=== PATIENT | female | born 1965 | race Hispanic/Latino ===

== ENCOUNTER 2020-12-11 20:26 | Emergency (ER) | payer MEDICARE ==
--- NOTE | 2020-12-11 22:27 | XRay Report ---
CHEST 2 VIEWS INDICATION / CLINICAL INFORMATION: Chest pain. COMPARISON: None available. FINDINGS: SUPPORT DEVICES: None. HEART / MEDIASTINUM: The heart size and pulmonary vasculature are normal. The aorta is normal in damian eduard. LUNGS / PLEURA: No significant pulmonary or pleural abnormality. No pneumothorax. ADDITIONAL FINDINGS: No significant additional findings. IMPRESSION: No acute findings. Signer Name: Frank Thompson MD Signed: 12/11/2020 10:22 PM Workstation Name: [id number]
[2020-12-11 23:06] LABS: Basophils # (Auto) 0.1 K/mm3 (0.0-0.1); Basophils % (Auto) 0.9 % (0.0-1.8); Eosinophils # (Auto) 0.3 K/mm3 (0.0-0.4); Eosinophils % (Auto) 2.7 % (0.0-4.3); Hematocrit 48.6 % (30.3-42.9); Hemoglobin 16.5 gm/dl (10.1-14.3); Lymphocytes # (Auto) 4.1 K/mm3 (1.2-5.4); Mean Corpuscular HGB Conc 34 % (30-34); Mean Corpuscular Volume 89 fl (79-97); Monocytes # (Auto) 0.6 K/mm3 (0.0-0.8); Monocytes % (Auto) 4.8 % (0.0-7.3); Platelet Count 345 K/mm3 (140-440); Red Blood Count 5.48 M/mm3 (3.65-5.03); Red Cell Distribution Width 14.2 % (13.2-15.2)
[2020-12-11 23:25] LABS: Alanine Aminotransferase 13 units/L (7-56); Albumin 4.4 g/dL (3.9-5); BUN/Creatinine Ratio 20; Blood Urea Nitrogen 22 mg/dL (7-17); Hemolysis Index 9
[2020-12-11] MEDS ORDERED: MORPHINE 4 MG/1 ML INJ IV ONE (23:43)
[2020-12-11] MEDS ORDERED: ONDANSETRON 4 MG/2 ML INJ IV ONE (23:43)
--- NOTE | 2020-12-12 00:12 | Emergency Department Report ---
HPI - General Chief Complaint: Dizziness Time Seen by Provider: 12/11/20 23:31 - HPI HPI: This is a 55-year-old female presents to the emergency department with the complaints of pelvic pain and pain to the right upper back, around the shoulder blade. The issue with the shoulder blade has been going on for "months." The patient is due to have a D&C here this coming Saturday with Dr. Becki Alcantar. She recently was seen secondary to dysfunctional uterine bleeding and says that she had an abnormal Pap smear. They suspect polyps. They spoke to her about a possible hysterectomy but the patient refused or deferred and will have the D&C. Patient says that the pelvic pain has increased over the past 1 to 2 days and that the pain is so bad that it is causing her to feel anxious and she thinks also causing her to feel short of breath. She otherwise has a history of anxiety, essential tremors, seizures. She has a previous cholecystectomy. She has not taken anything for symptoms prior to presentation. ED Past Medical Hx - Past Medical History Previous Medical History?: Yes Hx Seizures: Yes (Last 1 year ago) Hx Psychiatric Treatment: Yes (anxiety, essesntial tremors) - Surgical History Hx Cholecystectomy: Yes - Social History Smoking Status: Current Every Day Smoker - Medications Home Medications: Home Medications Medication Instructions Recorded Confirmed Last Taken Type HYDROcodone/APAP 5-325 [[place] 1 each PO Q4HR PRN 12/08/20 12/08/20 Unknown History 5/325] [place] 5-325 mg TAB 1 tab PO Q4H PRN 12/08/20 12/08/20 Unknown History buPROPion HCL [Bupropion Xl] 150 mg PO DAILY 12/08/20 12/08/20 Unknown History propranoloL [Inderal] 20 mg PO BID 12/08/20 12/08/20 Unknown History Nitrofurantoin [place]/M-Cryst 100 mg PO Q12HR #14 capsule 12/12/20 Unknown Rx [Macrobid CAP] Phenazopyridine [Pyridium] 100 mg PO TID #5 tab 12/12/20 Unknown Rx ED Review of Systems ROS: Stated complaint: DIZZINESS, ABD PIAN, FITZ Other details as noted in HPI Comment: All other systems reviewed and negative Constitutional: denies: chills, fever Eyes: denies: eye pain, vision change ENT: denies: ear pain, throat pain Respiratory: shortness of breath. denies: cough Cardiovascular: denies: palpitations, edema Gastrointestinal: denies: nausea, vomiting Genitourinary: other (Pelvic pain). denies: dysuria, discharge Musculoskeletal: back pain. denies: joint swelling Skin: denies: rash, lesions Neurological: denies: headache, weakness Physical Exam - Physical Exam Vital Signs: Vital Signs 12/11/20 21:35 Temperature 98.6 F Pulse Rate 107 H Respiratory 12 Rate Blood Pressure 110/88 O2 Sat by Pulse 97 Oximetry ED Course Vital Signs 12/11/20 21:35 Temperature 98.6 F Pulse Rate 107 H Respiratory 12 Rate Blood Pressure 110/88 O2 Sat by Pulse 97 Oximetry ED Medical Decision Making - Lab Data Result diagrams: 12/11/20 22:27 12/11/20 22:27 Lab Results 12/11/20 12/11/20 12/12/20 Range/Units 22:27 22:27 02:21 WBC 12.2 H (4.5-11.0) K/mm3 RBC 5.48 H (3.65-5.03) M/mm3 Hgb 16.5 H (10.1-14.3) gm/dl Hct 48.6 H (30.3-42.9) % MCV 89 (79-97) fl MCH 30 (28-32) pg MCHC 34 (30-34) % RDW 14.2 (13.2-15.2) % Plt Count 345 (140-440) K/mm3 Lymph % (Auto) 34.0 (13.4-35.0) % [place] % (Auto) 4.8 (0.0-7.3) % Eos % (Auto) 2.7 (0.0-4.3) % Baso % (Auto) 0.9 (0.0-1.8) % Lymph # (Auto) 4.1 (1.2-5.4) K/mm3 [place] # (Auto) 0.6 (0.0-0.8) K/mm3 Eos # (Auto) 0.3 (0.0-0.4) K/mm3 Baso # (Auto) 0.1 (0.0-0.1) K/mm3 Seg Neutrophils % 57.6 (40.0-70.0) % Seg Neutrophils # 7.0 (1.8-7.7) K/mm3 Sodium 142 (137-145) mmol/L Potassium 4.8 (3.6-5.0) mmol/L Chloride 103.2 (98-107) mmol/L Carbon Dioxide 29 (22-30) mmol/L Anion Gap 15 mmol/L BUN 22 H (7-17) mg/dL Creatinine 1.1 (0.6-1.2) mg/dL Estimated GFR 52 ml/min BUN/Creatinine Ratio 20 % Glucose 109 H (65-100) mg/dL Calcium 10.0 (8.4-10.2) mg/dL Total Bilirubin 0.30 (0.1-1.2) mg/dL AST 14 (5-40) units/L ALT 13 (7-56) units/L Alkaline Phosphatase 116 (35-129) units/L Troponin T < 0.010 (0.00-0.029) ng/mL Total Protein 7.1 (6.3-8.2) g/dL Albumin 4.4 (3.9-5) g/dL Albumin/Globulin Ratio 1.6 % Urine Color Yellow (Yellow) Urine Turbidity Slightly-cloudy (Clear) Urine pH 5.0 (5.0-7.0) Ur Specific [place] 1.016 (1.003-1.030) Urine Protein <15 mg/dl (Negative) mg/dL Urine Glucose (UA) Neg (Negative) mg/dL Urine Ketones Neg (Negative) mg/dL Urine Blood Mod (Negative) Urine Nitrite Neg (Negative) Urine Bilirubin Neg (Negative) Urine Urobilinogen < 2.0 (<2.0) mg/dL Ur Leukocyte Esterase Mod (Negative) Urine WBC (Auto) 58.0 H (0.0-6.0) /HPF Urine RBC (Auto) 5.0 (0.0-6.0) /HPF U Epithel Cells (Auto) 3.0 (0-13.0) /HPF Urine Bacteria (Auto) 1+ (Negative) /HPF Urine Mucus Few /HPF - EKG Data -: EKG Interpreted by Ca EKG shows normal: sinus rhythm, axis, intervals, QRS complexes, ST-T waves Rate: normal - EKG Data When compared to previous EKG there are: previous EKG unavailable Interpretation: normal EKG - Radiology Data Radiology results: report reviewed, image reviewed ULTRASOUND PELVIS INDICATION / CLINICAL INFORMATION: Pelvic pain. TECHNIQUE: Transabdominal. Duplex Color Doppler used: Yes. COMPARISON: None available FINDINGS: UTERUS: The uterus measures 6.6 x 2.2 x 3.5 cm. The uterus demonstrates a normal sonographic appearance. The endometrial stripe is not well seen. RIGHT ADNEXA: Not seen LEFT ADNEXA: Not seen URINARY BLADDER: No significant abnormality. FREE FLUID: None. ADDITIONAL FINDINGS: None. IMPRESSION: No significant abnormality of the uterus. Neither ovary is seen, though there is no significant cystic or solid mass in either adnexa. No free fluid. - Medical Decision Making This patient presents to the emergency department with the complaints of some pain to the right upper back, around the shoulder blade, as well as some lower abdominal and/or pelvic cramping pain. Heart and lung sounds are normal to auscultation. There is no abdominal tenderness to palpation. She does not appear in any respiratory or acute distress. Chest x-ray does not show any pneumonia, pleural effusions, pneumothorax, widened mediastinum, or any other acute process. Abdominal x-ray shows nonspecific nonobstructive bowel gas. No free air. Patient had an ultrasound that did not visualize the ovaries, but no significant abnormality seen to the uterus or bilateral adnexa. Patient's labs are mostly unremarkable including CBC, metabolic panel, and troponin. However, urinalysis shows a urinary tract infection with 58 WBCs. The patient was given a dose of IV analgesia, anti-inflammatory, IV fluid resu scitation, and antibiotic and a dose of Pyridium. She was reevaluated multiple times over multiple hours and is feeling greatly improved. Patient has good outpatient follow-up with [facility] for which she has a D&C scheduled on Saturday. She has also been instructed to follow-up with her primary care physician. She will return to the ER with any worsening of her symptoms or with any acute distress. Critical Care Time: No Critical care attestation.: If time is entered above; I have spent that time in minutes in the direct care of this critically ill patient, excluding procedure time. ED Disposition Clinical Impression: Pelvic cramping, Pain of right scapula UTI (urinary tract infection) Qualifiers: Urinary tract infection type: acute cystitis Hematuria presence: without hematuria Qualified Code(s): N30.00 - Acute cystitis without hematuria Disposition: TO HOME OR SELFCARE Is pt being admited?: No Condition: Stable Instructions: Pelvic Pain, Female, Urinary Tract Infection, Adult Additional Instructions: Please follow-up with your primary care physician in the next few days. Follow-up for your procedure with your [facility] as previously scheduled. Take medications as prescribed. Return to the emergency department with any worsening of your symptoms, new or concerning symptoms not addressed during this current emergency department visit, or with any acute distress. Prescriptions: Nitrofurantoin [place]/M-Cryst [Macrobid CAP] 100 mg PO Q12HR #14 capsule Phenazopyridine [Pyridium] 100 mg PO TID #5 tab Referrals: JAVIER ALCANTAR MD [Staff Physician] - 2-3 Days PCP, Your [Other] - 2-3 Days Time of Disposition: 04:19
--- NOTE | 2020-12-12 01:00 | Ultrasound Report ---
ULTRASOUND PELVIS INDICATION / CLINICAL INFORMATION: Pelvic pain. TECHNIQUE: Transabdominal. Duplex Color Doppler used: Yes. COMPARISON: None available FINDINGS: UTERUS: The uterus measures 6.6 x 2.2 x 3.5 cm. The uterus demonstrates a normal sonographic appeara nce. The endometrial stripe is not well seen. RIGHT ADNEXA: Not seen LEFT ADNEXA: Not seen URINARY BLADDER: No significant abnormality. FREE FLUID: None. ADDITIONAL FINDINGS: None. IMPRESSION: No significant abnormality of the uterus. Neither ovary is seen, though there is no significant cysti c or solid mass in either adnexa. No free fluid. Signer Name: Julio Bender MD Signed: 12/12/2020 12:55 AM Workstation Name: [id number]
[2020-12-12] MEDS ORDERED: KETOROLAC 30 MG/1 ML INJ IV ONE (01:18)
[2020-12-12] MEDS ORDERED: SODIUM CHLORIDE 0.9% 1000 ML 1,000 ML IV ONE (01:18)
[2020-12-12 02:44] LABS: Bacteria,Urine 1+ /HPF (Negative); Bilirubin,Urine NEG (Negative); Blood,Urine MOD (Negative); Color,Urine Yellow (Yellow); Mucus,Urine FEW /HPF; Protein,Urine <15 mg/dL mg/dL (Negative); Urobilinogen,Urine < 2.0 mg/dL (<2.0)
[2020-12-12] MEDS ORDERED: NITROFURANTOIN MONOHYD/M-CRYST 100 MG CAP PO ONE (02:50)
[2020-12-12] MEDS ORDERED: PHENAZOPYRIDINE 100 MG TAB PO ONE (03:51)
[2020-12-12 04:03] VITALS: BP 112/84
--- NOTE | 2020-12-12 18:01 | Electrocardiograph Report ---
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
== END 2020-12-12 04:52 | disposition home or self-care (01) ==
LOC: ED 20:26
DX: N39.0 Urinary tract infection, site not specified (principal); R10.2 Pelvic and perineal pain; M89.8X1 Other specified disorders of bone, shoulder; F17.200 Nicotine dependence, unspecified, uncomplicated; F41.9 Anxiety disorder, unspecified; Z79.899 Other long term (current) drug therapy; Z90.49 Acquired absence of other specified parts of digestive tract
CPT/HCPCS: 36415; 71046; 80053; 81001; 84484; 85025; 87086; 93005; 93975; 96361; 96374; 96375; 99284; J1885; J2270; J2405; J7030

== ENCOUNTER 2020-12-14 07:59 | Day surgery (SDC) | payer MEDICARE ==
[2020-12-14] MEDS ORDERED: MIDAZOLAM 2 MG/2 ML INJ ONE (09:37)
[2020-12-14] MEDS ORDERED: LACTATED RINGERS 1,000 ML ONE (09:37)
[2020-12-14] MEDS ORDERED: ONDANSETRON 4 MG/2 ML INJ ONE ×2 (09:37→11:29)
--- NOTE | 2020-12-14 09:38 | Anesthesia Day of Surgery ---
Anesthesia Day of Surgery - Day of Surgery Patient Examined: Yes Patient H&P Reviewed: Yes Patient is NPO: Yes Beta Blockers: Yes
--- NOTE | 2020-12-14 09:40 | Anesthesia Consultation ---
Anesthesia Consult and Med Hx Date of service: 12/14/20 - Airway Anesthetic Teeth Evaluation: Good ROM Head & Neck: Adequate Mental/Hyoid Distance: Adequate Mallampati Class: Class III Intubation Access Assessment: Probably Good - Pre-Operative Health Status ASA Pre-Surgery Classification: ASA3 Proposed Anesthetic Plan: General - Pulmonary Hx Smoking: Yes SOB: Yes (GONG) - Central Nervous System Hx Neuromuscular Disorder: Yes (Essential tremors) Hx Seizures: Yes ("Emotional seizures" Last 1 year ago) Hx Psychiatric Problems: Yes (Anxiety) - Gastrointestinal Hx Gastroesophageal Reflux Disease: No (Pancreatitis) - Other Systems Hx Cancer: No Hx Obesity: Yes
[2020-12-14] MEDS ORDERED: HYDROmorphone 1 MG/1 ML INJ IV PRN ×2 (09:41)
[2020-12-14] MEDS ORDERED: ONDANSETRON 4 MG/2 ML INJ IV NR (10:00)
[2020-12-14] MEDS ORDERED: MIDAZOLAM 2 MG/2 ML INJ IV NR (10:00)
[2020-12-14] MEDS ORDERED: LACTATED RINGERS 1,000 ML IV SCH (10:30)
--- NOTE | 2020-12-14 10:51 | Short Stay Summary ---
Short Stay Documentation Date of service: 12/14/20 Narrative H&P: Patient 65-year-old female who presents with postmenopausal bleeding and pain. Ultrasound revealed thickened endometrium however there were no fibroids noted. She is here for D&C hysteroscopy to better evaluate uterine cavity. Patient refused endometrial biopsy in the office. - History Principal diagnosis: Postmenopausal bleeding H&P: dictated Past Medical History: diabetes, hypertension Past Surgical History: Other (tubal ligation) Social history: single - Allergies and Medications Current Medications: Allergies No Known Allergies Allergy (Unverified 12/08/20 14:58) Home Medications Medication Instructions Recorded Confirmed Last Taken Type HYDROcodone/APAP 5-325 [[place] 1 each PO Q4HR PRN 12/08/20 12/08/20 12/13/20 History 5/325] [place] 5-325 mg TAB 1 tab PO Q4H PRN 12/08/20 12/08/20 12/13/20 History buPROPion HCL [Bupropion Xl] 150 mg PO DAILY 12/08/20 12/08/20 12/14/20 06:30 History propranoloL [Inderal] 20 mg PO BID 12/08/20 12/08/20 12/14/20 06:30 History Nitrofurantoin [place]/M-Cryst 100 mg PO Q12HR #14 capsule 12/12/20 12/14/20 12/14/20 06:30 Rx [Macrobid CAP] Phenazopyridine [Pyridium] 100 mg PO TID #5 tab 12/12/20 12/14/20 12/13/20 Rx Active Medications Cefazolin Sodium (Cefazolin/Sterile Water 2 Gm/20 Ml Syringe) 2 gm IV PREOP NR Hydromorphone HCl (Hydromorphone 1 Mg/1 Ml Inj) 0.25 mg IV Q10MIN PRN PRN Reason: Pain, Moderate (4-6) Stop: 12/14/20 23:00 Hydromorphone HCl (Hydromorphone 1 Mg/1 Ml Inj) 0.5 mg IV Q10MIN PRN PRN Reason: Pain , Severe (7-10) Stop: 12/14/20 23:00 Lactated Ringer's (Lactated Ringers) 1,000 mls @ 125 mls/hr IV DIRECT NEYMAR Last Admin: 12/14/20 09:40 Dose: 125 mls/hr Documented by: Midazolam HCl (Midazolam 2 Mg/2 Ml Inj) 2 mg IV PREOP NR Stop: 12/14/20 23:59 Last Admin: 12/14/20 09:42 Dose: 2 mg Documented by: Ondansetron HCl (Ondansetron 4 Mg/2 Ml Inj) 4 mg IV ONCE PRN PRN Reason: Nausea And Vomiting Stop: 12/14/20 20:00 Ondansetron HCl (Ondansetron 4 Mg/2 Ml Inj) 4 mg IV PREOP NR Stop: 12/14/20 11:00 - Physical exam General appearance: no acute distress Integumentary: no rash, no growths Lungs: Clear to auscultation, Normal air movement Breasts: deferred Heart: Regular rate, Normal S1, Normal S2 Gastrointestinal: normal, normoactive bowel sounds Female Genitourinary: deferred Rectal Exam: deferred Extremities: no ischemia, No edema - Brief post op/procedure progress note Date of procedure: 12/14/20 Pre-op diagnosis: Postmenopausal bleeding Post-op diagnosis: same (With cervical mass) Procedure: Exam under anesthesia, endocervical biopsy, endometrial biopsy Anesthesia: GETA, MAC Findings: Friable fungating mass at cervical's, cervix flushed with vagina and immobile Surgeon: JAVIER SINCLAIR Estimated blood loss: 50-100ml Pathology: list (Endocervical curettings endometrial curettings) Specimen disposition: to lab Condition: stable - Hospital course Hospital course: Unremarkable - Disposition Condition at discharge: Stable Disposition: DC- TO HOME OR SELFCARE Short Stay Discharge Plan Activity: advance as tolerated Weight Bearing Status: Weight Bear as Tolerated Diet: regular Wound: open to air Follow up with: JAVIER SINCLAIR MD [Staff Physician] - 14 Days Prescriptions: [place] 5-325 mg TAB 1 tab PO Q4H PRN #30 PRN Reason: Pain , Severe (7-10)
[2020-12-14] MEDS ORDERED: LIDOCAINE MPF (2%) 20 MG/1 ML VIAL 5 ML ONE (10:52)
[2020-12-14] MEDS ORDERED: propofoL 200 MG/20 ML VIAL IV ONE (10:52)
[2020-12-14] MEDS ORDERED: HYDROmorphone 1 MG/1 ML INJ ONE (10:52)
[2020-12-14] MEDS ORDERED: ceFAZolin/STERILE WATER 2 GM/20 ML SYRINGE IV NR (11:00)
[2020-12-14] MEDS ORDERED: ceFAZolin/Water 2 GM/20 ML 2 GM/20 ML SYRINGE IV NR (11:00)
[2020-12-14] MEDS ORDERED: ONDANSETRON 4 MG/2 ML INJ IV PRN (11:00)
[2020-12-14] MEDS ORDERED: dexAMETHasone 20 MG/5 ML VIAL ONE (11:29)
[2020-12-14] MEDS ORDERED: SODIUM CHLORIDE 0.9% IRR 1,000 ML BOTTLE IR ONE ×2 (11:29→11:30)
[2020-12-14] MEDS ORDERED: SILVER NITRATE APPLICATOR 1 EA TP ONE ×2 (11:38→11:39)
--- NOTE | 2020-12-14 12:00 | Operative Report ---
Operative Report Operative Report: Pre Op Diagnosis: Postmenopausal bleeding Post Op Diagnosis: Same with cervical mass Procedure: D&C with cervical biopsy Surgeon: Alejandra Alcantar MD EBL: 200 cc IVF: 1600 cc Urine output: 30 cc clear prior to start of procedure Specimen: Endocervical curettings Complications: Stenotic cervix inability to dilate cervix Procedure: The patient returned to the OR with IV running and in place. She was given general anesthesia without difficulty. She was then placed in dorsolithotomy position and prepped and draped in normal sterile fashion. Her bladder was drained approximately 100 cc of clear yellow urine. Attention was then turned to the patient's vagina. A bivalve speculum placed in the vagina, the uterus was then identified and grasped with single-tooth tenaculum. Dilation of the cervical os was attempted however it was unsuccessful secondary to stenosis as well as a friable mass that was protruding from the os of the cervix. The curettage was attempted however only pieces of the apparent mass were able to be removed. In addition patient began to have significant bleeding. Pressure was applied and silver nitrate was applied to the bleeding areas which allowed for hemostasis. At this point in the procedure there was excellent hemostasis. At this point all instruments were removed from the patient's vagina. She was then awakened and taken recovery in stable condition. The sponge and instrument counts were correct x2.
[2020-12-14 12:51] VITALS: BP 107/63
--- NOTE | 2020-12-14 16:57 | Post Anesthesia Evaluation ---
- Post Anesthesia Evaluation Patient Participated: Yes Airway Patent: Yes Stable Respiratory Function: Yes Nausea/Vomiting: No Temp > 96.8F: Yes Pain Manageable: Yes Adequeate Hydration: Yes Anesthesia Complications: No Block Receding Appropriately: Not Applicable Patient on Ventilator: No
== END 2020-12-14 13:10 | disposition home or self-care (01) ==
LOC: OR 07:59
PROVIDERS: ATTEND Obstetrics & Gynecology
DX: N95.0 Postmenopausal bleeding (principal); N85.8 Other specified noninflammatory disorders of uterus; E11.9 Type 2 diabetes mellitus without complications; I10 Essential (primary) hypertension; F17.210 Nicotine dependence, cigarettes, uncomplicated; K21.9 Gastro-esophageal reflux disease without esophagitis; E66.9 Obesity, unspecified; F32.9 Major depressive disorder, single episode, unspecified; Z98.51 Tubal ligation status; Z68.36 Body mass index [BMI] 36.0-36.9, adult; Z79.899 Other long term (current) drug therapy; Z87.440 Personal history of urinary (tract) infections; Z98.890 Other specified postprocedural states; Z90.49 Acquired absence of other specified parts of digestive tract; F41.9 Anxiety disorder, unspecified
CPT/HCPCS: 58558; 88305; J0690; J1100; J1170; J2250; J2405; J2704; J7120; 88341; 88342